=== PATIENT | male | born 1970 | race Caucasian/White ===

== ENCOUNTER 2021-09-19 15:32 | Outpatient (CLI) | payer OTHER, SELFPAY ==
--- NOTE | 2021-09-22 12:05 | WPDHOLTEREM ---
Holter/Event Monitor Holter/Event Monitor Date of procedure: 09/19/21 Holter/Event Procedure: 24 Hr Holter Monitor Indications: Palpitations Conclusion: 1. 24 hour holter monitor on 09/19/21. 2. Underlying rhythm is sinus rhythm. HR range 37-97 bpm; average HR 68 bpm. 3. There are 15 premature supraventricular complexes and 40 supraventricular couplets. No supraventricular tachycardia. 4. There are 160 premature ventricular complexes. No ventricular tachycardia. 5. No sinoatrial or atrioventricular blocks. No significant pauses greater than 2 seconds. 6. Patient reports symptom of palpitation which demonstrate sinus rhythm at 72 bpm.
== END 2021-09-19 15:33 | disposition home or self-care (01) ==
LOC: ANHCARD 15:33
PROVIDERS: PCP Family Medicine; Visit Provider Physician Assistant
DX: R00.2 Palpitations (principal)
CPT/HCPCS: 93225; 93226

== ENCOUNTER 2021-09-27 18:52 | Emergency (ER) | payer OTHER, SELFPAY ==
--- NOTE | ~2021-09-27 | XR_ITS ---
EXAM: XR toe 1st RT min 2V HISTORY: pain, swelling COMPARISON: None available FINDINGS: Normal mineralization. No fracture or dislocation. No lytic or blastic lesion. Mild degene rative change at the interphalangeal joint of the first digit. No acute erosion or periosteal change. Chronic soft tissue ossification along the inferolateral aspect of the first proximal phalanx. Conge nital multipartite lateral sesamoid versus old sesamoid bone fracture. Soft tissues within normal murry its. IMPRESSION: No acute osseous abnormality in the first toe. Reviewed, dictated and finalized at location K.
[2021-09-27 19:00] VITALS: BP 187/95; PULSE 84; RESP 17; TEMP 37.1; O2SAT 99
--- NOTE | 2021-09-27 19:41 | ED.GENADULT ---
HPI - General Adult General Chief complaint: Wound/Laceration <Jeanna Varma PA-C - Last Filed: 09/27/21 21:32> Stated complaint: insect bite to R great toe <COURTNEY Klye Last Filed: 09/27/21 21:32> Time Seen by Provider: 09/27/21 19:09 <COURTNEY Kyle Last Filed: 09/27/21 21:32> History of Present Illness HPI narrative: Patient is a 51-year-old male with a history of prediabetes who presents for evaluation of a wound on the plantar aspect of his right great toe. States the wound began as a callus, and he picked at the area yesterday, and it began to bleed heavily. Today he states he woke up with some redness around the right great toe with a throbbing pain. He has not taken any medications for his pain. States that he feels fatigued today, but denies fevers, nausea, vomiting. Denies history of gout. <COURTNEY Kyle Last Filed: 09/27/21 21:32> Related Data Home medications: Home Medications Medication Instructions Recorded Confirmed fluoxetine 20 mg capsule 20 mg PO DAILY 03/17/21 <COURTNEY Kyle Last Filed: 09/27/21 21:32> Allergies/adverse reactions: Allergies Allergy/AdvReac Type Severity Reaction Status Date / Time No Known Allergies Allergy Verified 03/17/21 09:11 <COURTNEY Kyle Last Filed: 09/27/21 21:32> Review of Systems Review of Systems: Gen.: Denies fevers or chills Eyes: Denies eye pain or visual change ENT: Denies congestion Respiratory: Denies shortness of breath or cough CV: Denies chest pain or palpitations GI: Denies abdominal pain nausea, emesis or diarrhea denies burning, urgency, frequency or hematuria Musculoskeletal: Denies back pain or muscle pain Neuro: Denies numbness, tingling, weakness or focal weakness Skin: Reports callus to right great toe. denies rash Except as documented, all other systems reviewed and negative <Jeanna Varma PA-C - Last Filed: 09/27/21 21:32> All systems reviewed & are unremarkable except as noted in HPI and below <Jeanna Vamra PA-C - Last Filed: 09/27/21 21:32> [facility] Family History Family History: Family History (Updated 03/17/21 @ 09:13 by Yomaira Barakat MA) Father Diabetes mellitus Hypertension <Jeanna Varma PA-C - Last Filed: 09/27/21 21:32> Social History Social History: Social History (Updated 03/17/21 @ 09:13 by Yomaira Barakat MA) Smoking status: Never smoker Alcohol intake: never Substance use: never <Jeanna Varma PA-C - Last Filed: 09/27/21 21:32> Exam Narrative: Gen: Alert, oriented male in no acute distress. Eyes: EOMI, no icterus Pulm: Respirations even and unlabored, symmetric thorax expansion, no audible stridor or visible cyanosis CV: Regular rate and rhythm with no murmurs auscultated. 2+ distal pulses. GI: No distension, no voluntary/involuntary guarding MSK: Tender to palpation over lateral MTP joint on the right. No pain with passive range of motion of toe. Neuro: AOx4, moves all extremities without apparent difficulty or weakness, follows commands Skin: Patient has a small erosion to the plantar aspect of his right great toe with no active bleeding. Right great toe has moderate amount of erythema and edema. Psych: Normal mood/affect, insight/judgement good, adequate fund of knowledge, recent/remote memory intact <Jeanna Varma PA-C - Last Filed: 09/27/21 21:32> Course [facility]ER/PA Physician Supervision Patient was seen and evaluated by me. Patient presents emergency room secondary pain to his great toe. Got erythema to it. Also got a small ulcerative lesion on the plantar aspect. Denies stepping any foreign bodies. X-rays are unremarkable. Never history history of gout. Got some lymphangitis running up the top of the foot. Presentation is consistent with a infectious process. Will be put on antibiotics. Told to soak in warm
[2021-09-27 19:59] LABS: Basophils Absolute Auto 0.1 K/mm3 (0.0-0.1); Basophils Percent Auto 0.6 % (0.2-1.2); Eosinophils Absolute Auto 0.1 K/mm3 (0-0.3); Eosinophils Percent Auto 0.9 % (0-4.4); Hematocrit 42.2 % (42.0-52.0); Hemoglobin 14.8 g/dL (14.0-18.0); Immature Granulocyte Absolute 0.01 K/mm3 (0.00-0.031); Immature Granulocyte Percent A 0.1 % (0-0.5); Lymphocytes Absolute Auto 2.04 K/mm3 (0.9-3.2); Lymphocytes Percent Auto 25.1 % (18.3-44.2); Mean Corpuscular HGB Conc 35.1 g/dl (32-36); Mean Corpuscular Volume 88.5 fl (80-100); Mean Platelet Volume 11.1 fl (7.4-10.4); Monocytes Absolute Auto 0.8 K/mm3 (0.1-0.6); Monocytes Percent Auto 10.1 % (2.6-8.5); Neutrophils Absolute Auto 5.2 K/mm3 (1.3-6.7); Neutrophils Percent Auto 63.2 % (45.5-73.1); Platelet Count Result 161 k/mm3 (150-375); Red Blood Count 4.77 M/mm3 (4.6-6.20); Red Cell Distribution Width 12.4 % (11.5-14.5); White Blood Count 8.1 K/mm3 (4.5-10.0)
[2021-09-27 20:08] LABS: Alanine Aminotransferase 28 U/L (4-50); Albumin Level 4.7 g/dL (3.5-5.1); Alkaline Phosphatase 70 U/L (38-126); Anion Gap 11 mmol/L (8-16); Aspartate Amino Transferase 29 U/L (17-59); Bilirubin,Total 0.7 mg/dL (0.2-1.3); Blood Urea Nitrogen 18 mg/dL (9-20); Calcium 9.3 mg/dL (8.4-10.2); Carbon Dioxide 22 mmol/L (22-30); Chloride 107 mmol/L (98-107); Estimated CRCL calculation 98 ml/min; Estimated Glomerular Filt Rate > 60; Glucose 129 mg/dL (65-110); Potassium 3.9 mmol/L (3.4-5.0); Sodium 140 mmol/L (137-145)
[2021-09-27] MEDS: COLCHICINE 0.6 MG TABLET PO (20:54)
== END 2021-09-27 21:04 | disposition home or self-care (01) ==
LOC: ANHED 20:45
PROVIDERS: Physician Assistant; Emergency Provider Emergency Medicine; PCP Family Medicine
DX: L03.031 Cellulitis of right toe (principal); R73.03 Prediabetes
CPT/HCPCS: 36415; 73660; 80053; 85025; 99283; A9270